=== PATIENT | male | born 1945 | race Caucasian/White ===

== ENCOUNTER → 2019-06-16 | Outpatient (CLI) | payer OTHER ==
--- NOTE | 2019-06-19 21:43 | SLE ---
[facility] [place] [address] POLYSOMNOGRAPHY STUDY Name: Zahira MCGRAW Room #: REG [facility]#: [id number] Admission: 06/16/19 ������������������ Attend Phys: Philippe Morales MD Discharge: ������������������ Date of : 41 Report #: [id number] THIS REPORT FOR: //name// CC: Philippe MITCHELL Physician staff Neftaly Simon MD DATE OF SERVICE: 06/16/2019 SLEEP STUDY ATTENDING PHYSICIAN: Dr. Neftaly Simon. The patient is a 74-year-old who weighs 170 pounds with a BMI of 23.1. The patient's Felton score was 3. The patient had an abnormal nocturnal oximetry study as an outpatient. As a result, he was referred for evaluation of sleep apnea. The study was performed at [facility]. During the night study, the patient spent 398 minutes in bed and slept for 248 minutes with a low sleep efficiency of 62%. Sleep latency was prolonged at 47 minutes with an absent REM sleep. Overall, sleep architecture showed normal stage 1 sleep, increased stage 2 sleep, reduced slow wave and absent REM sleep. During the initial diagnostic portion of the study, the patient slept for 125 minutes. During that time, the patient had 26 obstructive apneas, 1 mixed apnea, 1 central apnea and 71 hypopneas. The patient's apnea hypopnea index was 47 per hour. Supine AHI was 47 per hour as well. No REM sleep observed. EKG monitoring revealed an average heart rate of 59 beats per minute. No sustained arrhythmias observed. PLMS were seen at an index of 55 per hour and 1 per hour caused EEG arousals. While the patient slept on CPAP, the PLM index went down significantly to 7 per hour with an arousal index of 0.5 per hour. Nocturnal oximetry study during the diagnostic portion revealed an average oxygen saturation of 93% with the lowest of 76%. A 38 minutes were spent in oxygen saturation of less than 89%. The patient met the criteria for CPAP initiation. It was started at 7 cm water and titrated up to 14 cm of water. Due to mixed respiratory events including central and obstructive apneas as well as hypopneas, the patient was switched to BiPAP. It was started at 16/11 and titrated up to 18/12. At this pressure of 18/12, the patient slept for 35.9 minutes. The patient had no REM sleep. The [address] [address] POLYSOMNOGRAPHY STUDY Name: Zahira MCGRAW Room #: REG [facility]#: [id number] Admission: 06/16/19 ������������������ Attend Phys: Philippe Morales MD Discharge: ������������������ Date of : 41 Report #: [id number] patient had supine sleep throughout. The patient's AHI overall improved, but was still 8.4 per hour. Oxygen saturations did improve, but is still fluctuated in the mid to high 80s with a lowest level of 78%. I would recommend that the patient should be placed on a BiPAP of 20/14 and an outpatient nocturnal oximetry should be performed at this pressure. IMPRESSION: 1. Severe sleep apnea-hypopnea syndrome at an AHI of 47 per hour. 2. Moderate nocturnal hypoxia, which did improve while on BiPAP, but did not subsequently resolve. 3. Severe PLMS at an index of 55 per hour and but only 1 per hour caused EEG arousals. The PLM index significantly improved to 7 per hour with an arousal index of 0.5 per hour while the patient slept on BiPAP and as such it does not need to be treated. 4. 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 RECOMMENDATIONS: 1. BiPAP at a pressure of 20/14 should be used on a nightly basis. I would also recommend having a Nocturnal oximetry study at this final pressure to assess the need for any supplemental oxygen. 2. Avoid BUL[employer] depressants. 3. Cautioned regarding driving until symptoms of sleep apnea resolve with the use of BiPAP. 4. PLMS does not need to be treated. 5. If the patient has chronic insomnia, then it should be further evaluated and treated according to the etiology. ��������������������������������������������� <ELECTRONICALLY SIGNED> ���������������������������������������� By: Philippe Morales MD ��������������������������������������������� 06/19/19 [id number] Philippe Morales MD /nt
== END ==
LOC: SLEEPLAB 14:38
DX: G47.33 Obstructive sleep apnea (adult) (pediatric) (principal); G47.30 Sleep apnea, unspecified; R09.02 Hypoxemia; Z88.8 Allergy status to other drugs, medicaments and biological substances